=== PATIENT | female | born 1985 | race Caucasian/White ===

== ENCOUNTER 2022-01-10 05:25 | Emergency (ER) | payer MEDICAID ==
[2022-01-10 07:26] LABS: ESTIMATED GFR 85 mL/min (>60)
[2022-01-10 07:55] LABS: CORONAVIRUS COVID-19 NAA NEGATIVE (NEGATIVE)
== END 2022-01-10 10:24 | disposition home or self-care (01) ==
LOC: JD.ED 05:25
DX: R07.89 Other chest pain (principal); J06.9 Acute upper respiratory infection, unspecified; Z20.822 Contact with and (suspected) exposure to COVID-19; Z90.49 Acquired absence of other specified parts of digestive tract
CPT/HCPCS: 0240U; 36415; 71046; 80053; 81003; 81025; 84484; 85007; 85027; 86308; 87651; 93005; 99285

== ENCOUNTER 2025-02-04 11:45 | Emergency (ER) | payer BC, MEDICAID ==
[2025-02-04 12:39] LABS: MEAN PLATELET VOLUME 9.3 fl (9.4-12.3); NRBC ABSOLUTE 0.00 (0.00-0.02); NRBC PERCENT 0.0 % (0.0-0.2); PLATELET COUNT,PLT 244 K/mm3 (150-400); RED BLOOD CELL COUNT 4.16 M/mm3 (4.10-5.30); WHITE BLOOD CELL COUNT,WBC 10.00 K/mm3 (3.9-11.3)
[2025-02-04 12:54] LABS: BUPRENORPHINE SCREEN,URINE NEGATIVE (CUTOFF=10); METHADONE SCREEN, URINE NEGATIVE (CUTOFF=200); METHAMPHETAMINES SCREEN, URINE NEGATIVE (CUTOFF=500); OXYCODONE SCREEN,URINE NEGATIVE (CUT0FF=100); THC SCREEN,URINE 20 NG/ML NEGATIVE (CUTOFF=50)
[2025-02-04 13:05] LABS: A/G RATIO 0.9 (1-2); ALANINE AMINOTRANSFERASE,ALT 55.0 U/L (14-59); ASPARTATE AMNIOTRANSFERASE,AST 54.0 U/L (15-37); BILIRUBIN TOTAL 1.1 mg/dL (0.2-1.0); BLOOD UREA NITROGEN,BUN 9.0 mg/dL (7-18); CARBON DIOXIDE,CO2 25.0 mEq/L (21-32); CHLORIDE,CL 101.0 mEq/L (98-107); CREATININE 0.7 mg/dL (0.55-1.02); EST CRCL DRUG DOSING (CG) 88.31 mL/min; ESTIMATED GFR 113.0 mL/min (>60); GLUCOSE RANDOM 99.0 mg/dL (70-99); POTASSIUM,K 3.8 mEq/L (3.5-5.1); PROTEIN TOTAL,TP 7.9 g/dl (6.4-8.2); SODIUM,NA 139.0 mEq/L (136-145); TSH 0.558 uIU/mL (0.358-3.74)
[2025-02-04 13:06] LABS: AMPHETAMINES SCREEN, URINE NEGATIVE (CUTOFF=500)
[2025-02-04 13:13] LABS: ETHANOL BLOOD MEDICAL 0.0 gm% (0.00)
[2025-02-04 13:25] LABS: BAND PERCENT MAN 1 % (0-10); BASOPHILS PERCENT MAN 0 (0.1-1.2); EOSINOPHILS PERCENT MAN 1 % (0.7-5.8); LYMPHOCYTES % ATYPICAL MANUAL 0 %; LYMPHOCYTES PERCENT MAN 14 % (20-40); MONOCYTES PERCENT MAN 0 % (2-10); PLATELET COUNT ESTIMATE ADEQUATE
== END 2025-02-04 14:55 | disposition home or self-care (01) ==
LOC: JD.ED 11:45
DX: F10.230 Alcohol dependence with withdrawal, uncomplicated (principal); F17.210 Nicotine dependence, cigarettes, uncomplicated; Z79.899 Other long term (current) drug therapy; Z90.49 Acquired absence of other specified parts of digestive tract; Y90.9 Presence of alcohol in blood, level not specified
CPT/HCPCS: 36415; 80053; 80143; 80179; 80306; 80307; 81025; 83735; 84443; 85007; 85027; 93005; 99284; A9270; 93010; 99283